=== PATIENT | female | born 1965 | race Caucasian/White ===

== ENCOUNTER → 2020-11-11 09:15 | Outpatient (CLI) | payer BC, SELFPAY ==
--- NOTE | 2020-11-11 09:19 | MM_ITS ---
PROCEDURE: MM DIG SCREENING MAMM BI W/CAD Digital Breast Tomosynthesis Included CLINICAL INDICATION: SCREENING There is a history of breast cancer in the patient's maternal grandmother diagnosed after menopause. There has been a previous biopsy left breast for benign disease. COMPARISON: No exams were available for comparison TECHNIQUE: Standard CC and MLO images and 3D Tomosynthesis was obtained. R2 CAD reviewed. FINDINGS: Mild scattered fibroglandular densities are seen in each breast. There is a mole marker right breast there is a benign-appearing nodular density near the axillary tail left breast likely intramammary node. There is no suspicious lesion and no suspicious microcalcifications. IMPRESSION: BI-RAD Category: 2 Benign Finding(s) FOLLOW-UP: 1YR 1 Year Follow-up (A letter has been sent to the patient regarding results of the study.) Dictated by: Dr. Kennedy Mares MD 11/12/2020 14:44 Dr. Kennedy Mares MD in [place] 11/12/2020 14:44
== END ==
PROVIDERS: PCP Physician Assistant; Visit Provider Physician Assistant
DX: Z12.31 Encounter for screening mammogram for malignant neoplasm of breast (principal)
CPT/HCPCS: 77063; 77067

== ENCOUNTER → 2021-05-21 11:27 | Outpatient (CLI) | payer BC, SELFPAY ==
[2021-05-21 12:01] LABS: Basophils # 0.1 K/mm3 (0-0.2); Eosinophils # 0.2 K/mm3 (0.0-0.4); Eosinophils % 3.5 % (0.1-12.0); Hematocrit 39.9 % (37.0-47.0); Hemoglobin 13.7 g/dL (12.2-16.2); Lymphocytes # 1.3 K/mm3 (0.7-4.5); Lymphocytes % 20.2 % (10-50); Mean Corpuscular HGB Conc 34.3 g/dL (31.8-35.4); Mean Corpuscular Volume 87.4 fl (81-99); Mean Platelet Volume 7.1 fl (7.4-10.4); Monocytes # 0.4 K/mm3 (0.1-1.0); Monocytes % 6.4 % (1.7-9.3); Neutrophils # 4.6 K/mm3 (1.8-7.8); Platelet Count 214 K/mm3 (142-424); Red Blood Count 4.57 M/mm3 (4.20-5.40); Red Cell Distribution Width 14.1 % (11.5-17.5); White Blood Count 6.7 K/mm3 (4.8-10.8)
== END ==
PROVIDERS: PCP Physician Assistant; Visit Provider Physician Assistant
DX: Z20.822 Contact with and (suspected) exposure to COVID-19 (principal)
CPT/HCPCS: 36415; 85025; U0003

== ENCOUNTER → 2021-05-24 12:25 | Outpatient (CLI) | payer BC, SELFPAY | PROVIDERS: PCP Nurse Practitioner Family; Referring Provider Nurse Practitioner Family; Visit Provider Nurse Practitioner Family | DX: Z20.822 Contact with and (suspected) exposure to COVID-19 (principal) | CPT/HCPCS: U0003 ==

== ENCOUNTER → 2023-03-08 09:44 | Outpatient (CLI) | payer BC, SELFPAY ==
--- NOTE | 2023-03-08 09:53 | XR_ITS ---
FINAL REPORT CLINICAL HISTORY: post menopausal COMPARISON: None FINDINGS: Using L1-4, the bone mineral density of the spine is 0.899 g/cm2, corresponding to T-score of -1.3, consistent with low bone density. Using the left hip, the bone mineral density of the femoral neck is 0.782 g/cm2, corresponding to a T-score of -0.6. FRAX 10 year fracture risk is 0.3% for a hip fracture and 5.7% for a major osteoporotic fracture. Using the right hip, the bone mineral density of the femoral neck is 0.830 g/cm2, corresponding to a T-score of -0.2. FRAX 10 year fracture risk is 0.2% for a hip fracture and 5.4% for a major osteoporotic fracture. NOTE: T-score: Standard deviation compared with peak bone mass of young adult mean. *Following the recommendations of the International Society of Bone densitometry, classification of hip BMD is based on the lower of two T-scores; total hip or femoral neck. IMPRESSION: Normal bone mineral density of the bilateral hips, with diminished bone mineral density in the lumbar spine consistent with low bone density. Reviewed, Interpreted and Dictated by Gurvinder Bean MD Transcribed by Shakira Kathleen Authenticated and [facility]
--- NOTE | 2023-03-08 09:53 | MM_ITS ---
PROCEDURE INFORMATION: Exam: MG Bilateral Screening 3D Mammography Exam date and time: 03/08/2023 9:47 AM Age: 57 years old Clinical indication: Screening. Maternal aunt had breast cancer. History of benign left excisional biopsy. TECHNIQUE: Imaging protocol: Bilateral Screening tomosynthesis and 2D mammography including computer-aided detection (CAD) when performed. COMPARISON: MG MM DIG SCREENING MAMM BI W/CAD 11/11/2020 9:20 AM FINDINGS: MAMMOGRAPHY: Breast composition: There are scattered areas of fibroglandular density. Mass: None. Architectural distortion: None. Calcifications: No suspicious calcifications. Asymmetric density: None. Skin thickening: None. Axillary adenopathy: None. IMPRESSION: No mammographic evidence of malignancy. Annual screening is recommended unless otherwise clinically indicated. ASSESSMENT: BI-RADS Category 1: Negative
== END ==
PROVIDERS: PCP Nurse Practitioner Family; Visit Provider Physician Assistant
DX: Z12.31 Encounter for screening mammogram for malignant neoplasm of breast (principal); Z78.0 Asymptomatic menopausal state
CPT/HCPCS: 77063; 77067; 77080

== ENCOUNTER 2023-03-12 19:03 | Emergency (ER) | payer BC, SELFPAY ==
[2023-03-12 19:10] VITALS: BMI 35.4
--- NOTE | 2023-03-12 19:10 | XR_ITS ---
PROCEDURE INFORMATION: Exam: XR Right Ankle Exam date and time: 03/12/2023 7:08 PM Age: 57 years old Clinical indication: Injury or trauma; Other: Twisted; Swelling (edema); Ankle; Right; Additional info: Twisted ankle yesterday, pain lateral side, 5th metarsal TECHNIQUE: Imaging protocol: Radiologic exam of the right ankle. Views: 3 or more views. COMPARISON: CR [id number] XR knee RT 3V 26/10/2018 12:34 FINDINGS: Bones/joints: Calcaneus enthesophyte. No acute fracture or dislocation. Soft tissues: Normal. IMPRESSION: No acute fracture or dislocation.
[2023-03-12 19:13] VITALS: BP 132/80; PULSE 97; RESP 16; TEMP 36.7; O2SAT 96; BMI 35.4
--- NOTE | 2023-03-12 19:21 | HMH.EDGENADL ---
Discharge Plan Disposition Patient Disposition: Home, Self-Care Condition: Good Prescriptions Prescriptions: No Action baclofen 20 MG Tablet 20 mg PO TID gabapentin 300 MG Capsule 600 mg PO TID topiramate 100 MG Tablet 100 mg PO DAILY Referrals Follow up/Referrals: Fior Solomon APRN [Primary Care Provider] - See instructions Activity Restrictions/Add. Instructions Additional Instructions/Restrictions: You have been evaluated for injury to the right foot and ankle. X-rays do not show fracture or dislocation. Please continue taking anti-inflammatory medication like Tylenol and Motrin. Wear supportive shoe or a hard soled shoe. Follow-up with your primary care doctor in 1 to 2 days for symptom recheck. Return to the emergency department for any new or worsening symptoms Clinical Impressions Clinical Impression: Ankle sprain Instructions Patient Instructions: DI for Ankle Sprain Discharge ED Provider: Lesli Nguyen Adult HPI General Chief complaint: Extremity Injury, Lower Stated complaint: AO06/03 RT foor inj Time Seen by Provider: 03/12/23 19:09 Mode of Arrival: Family Vehicle Source of Information: Patient Limitations: No Limitations Description of Symptoms (Recalled from ER Triage Doc. by RN): 57 yo female presents with CC of right foot pain following an injury yesterday. States she stepped down on a plastic shredding machine knife changer and it caused her foot to roll underneath her leg. Patient is alert, oriented, states she has used ibuprofen and ice for tx with no easement. History of Present Illness HPI narrative: 57-year-old female presenting to the emergency department injury to her right foot and ankle. Incident happened yesterday evening. She was walking in her bedroom when she stepped on a shredding machine knife changer, inverted her foot and fell. She had immediate pain on the side of the ankle. Also pain at the base of the toes. Pain was initially sharp and intense. Now it is worse with motion. She has been taking ibuprofen every 4 hours, helps minimally. No breaks in the skin. No numbness, weakness, tingling. No pain near her knee. Related Data Home Medications Medication Instructions Recorded Confirmed baclofen 20 mg tablet 20 mg PO TID leg pain 03/12/18 09/18/18 gabapentin 300 mg capsule 600 mg PO TID neuropathy 03/12/18 09/18/18 topiramate 100 mg tablet 100 mg PO DAILY palpitations 03/12/18 09/18/18 Allergies Allergy/AdvReac Type Severity Reaction Status Date / Time Penicillins [PENICILLINS] Allergy Unknown Verified 10/26/18 12:20 Sulfa (Sulfonamide Allergy Unknown Verified 10/26/18 12:20 Antibiotics) [SULFA (SULFONAMIDE ANTIBIOTICS)] [facility] Disclaimer: The information contained in this section may have been updated after the patient was seen, as this information can be updated by other users. Social History Smoking Status: Current every day smoker tobacco type: cigarettes second hand exposure: No alcohol intake: never current occupational status: employed Travel in the last 8 weeks: None ROS Obtained: Yes All systems reviewed & no additional complaints except as documented Cardiovascular Cardiovascular: Denies chest pain and Denies palpitations Respiratory Respiratory: Denies cough Gastrointestinal Gastrointestingal: Denies abdominal pain, nausea or vomiting Musculoskeletal Musculoskeletal: Reports arthralgias (left ankle), Reports myalgias, Denies numbness and Reports stiffness Integumentary/Breasts Skin/Breast: Denies redness and Reports other (no bruising) Neurologic Neurologic: Denies numbness Endocrine Endocrine: Denies palpitations Physical Exam General General appearance: alert and in no apparent distress Head Head exam: atraumatic and normocephalic Respiratory Respiratory exam: Present normal lung sounds bilaterally; Absent respiratory distress or wheezes Cardiovascular Cardiovascular exam: Present regular rate and normal rhythm Abdo
--- NOTE | 2023-03-12 19:27 | XR_ITS ---
PROCEDURE INFORMATION: Exam: XR Right Foot Exam date and time: 03/12/2023 7:25 PM Age: 57 years old Clinical indication: Pain; Foot; Right; Additional info: Foot pain TECHNIQUE: Imaging protocol: Radiologic exam of the right foot. Views: 3 or more views. COMPARISON: CR XR ANKLE RT MIN 3V 01/12/2023 19:08 FINDINGS: Bones/joints: Calcaneus enthesophyte. No acute fracture or dislocation. Soft tissues: Normal. IMPRESSION: No acute fracture or dislocation.
[2023-03-12 20:03] VITALS: BP 127/74; PULSE 90; RESP 16; TEMP 36.6
== END 2023-03-12 20:28 | disposition home or self-care (01) ==
PROVIDERS: Emergency Provider Emergency Medicine; PCP Nurse Practitioner Family
DX: S93.601A Unspecified sprain of right foot, initial encounter (principal); S93.401A Sprain of unspecified ligament of right ankle, initial encounter; F17.210 Nicotine dependence, cigarettes, uncomplicated; X50.1XXA Overexertion from prolonged static or awkward postures, initial encounter
CPT/HCPCS: 73610; 73630; 99283

== ENCOUNTER 2023-05-25 09:30 | Day surgery (SDC) | payer BC, SELFPAY ==
[2023-05-18 08:05] VITALS: BMI 36.8
[2023-05-25 09:51] VITALS: BP 133/98; PULSE 72; RESP 18; TEMP 36.2; O2SAT 97
--- NOTE | 2023-05-25 10:12 | P.PNANES_ITS ---
[facility] Disclaimer: The information contained in this section may have been updated after the patient was seen, as this information can be updated by other users. Medical History Heart palpitations History of gastroesophageal reflux (GERD) Irritable bowel syndrome (IBS) Sleep apnea Surgical History History of appendectomy History of colonoscopy History of foot surgery History of hysterectomy History of incision and drainage History of tonsillectomy Hx of dilation and curettage Hx of hernia repair Family History Other Colon cancer Family history of diabetes mellitus type II Family history of heart disease Social History Smoking Status: Current every day smoker tobacco type: cigarettes second hand exposure: No alcohol intake: never substance use type: denies use current occupational status: retired Travel in the last 8 weeks: None household members: spouse housing: house lives independently: No marital status: education level: high school service: No care home: No caffeine: Yes special junior needs: No agree to transfusion: No do you feel safe at home: Yes victim of physical abuse: No victim of emotional abuse: No victim of sexual abuse: No would you like helpful sources: No [facility] Anesthesia Checklist Patient Identification Patient Identification: Arm Band Structural Data Admitted From: Home Planned Operative Procedure/s: Colonoscopy Consent for Planned Operative Procedure(s) Verified: Yes Verified Documents: Surgical Consent and History and Physical NPO Status Verified Time NPO: 00:00 Additional verifications Anesthesia Reactions: No Airway Assessment Mallampati Score:: Class II C-Spine Mobility Assessed: Yes TMJ Mobility Assessed: Yes Dentition: Dentures-good fit (removed) Neurological Assessment Level of Consciousness: Awake and Alert Anesthesia Plan Anesthesia Risk discussed: Yes Anesthesia Plan: Verified ASA Class: II Anesthesia Type: MAC
[2023-05-25 10:35] VITALS: O2SAT 97
--- NOTE | 2023-05-25 10:52 | HMH.SCOPE ---
Procedure: Date: 05/25/23 Patient Date of :: 1965 Procedure Performed:: Colonoscopy & polypectomy Indications:: Family history of colon cancer Personal history of polyps Performing Provider:: Henry Woodward MD Referring Provider:: Fior Solomon APRN Sedation:: Propofol Procedure:: After placing the patient in the left lateral decubitus position, the colonoscopy was gently inserted into the rectum and under direct visualization advanced to the cecum which was identified by transillumination in the right lower quadrant, identification of the ileocecal valve, appendiceal orifice, and cecal strap. Color, texture, mucosa, and anatomy of the colon were carefully examined with the scope. Findings:: Anal canal: normal Rectum: 0.7 cm adenomatous polyp identified and removed with hot snare Sigmoid colon: normal without polyps or inflammatory changes Descending colon: normal without polyps or inflammatory changes Splenic flexure: normal Transverse colon: normal without polyps or inflammatory changes Hepatic flexure: normal Ascending colon: normal without polyps or inflammatory changes Cecum: normal Terminal ileum: not visualized Impression: Adenomatous rectal polyp Specimens:: Rectal polyp Recommendations:: Follow up examination in about THREE years or so, sooner if clinically indicated in view of current findings. Complications:: None Estimated blood obtained (mL): 0 Colonoscopy Component Colonoscopy Component Was a colonoscopy performed during today's procedure?: Yes Recommended follow up colonoscopy of at least 10 years?: No If no, follow up colonoscopy recommended in ___ years?: Three Reason for not recommending >/= 10 yr follow-up interval?: Rectal polyp as noted in report
[2023-05-25 10:57] VITALS: BP 96/50; PULSE 65; RESP 15; TEMP 36.3; O2SAT 95
[2023-05-25 11:07] VITALS: BP 107/68; PULSE 63; RESP 17; O2SAT 96
[2023-05-25 11:17] VITALS: BP 106/70; PULSE 71; RESP 16; O2SAT 96
[2023-05-25 11:27] VITALS: BP 109/79; PULSE 77; RESP 17; O2SAT 97
== END 2023-05-25 11:35 | disposition home or self-care (01) ==
PROVIDERS: PCP Nurse Practitioner Family; Visit Provider Internal Medicine Gastroenterology
PROC: 0DJD8ZZ Inspection of Lower Intestinal Tract, Via Natural or Artificial Opening Endoscopic (ICD-10-PCS; CPT 45378; principal; 2023-05-25 10:30)
DX: Z12.11 Encounter for screening for malignant neoplasm of colon (principal); Z80.0 Family history of malignant neoplasm of digestive organs; Z86.010 Personal history of colon polyps; D12.8 Benign neoplasm of rectum
CPT/HCPCS: 45385